=== PATIENT | male | born 1950 | race Caucasian/White ===

== ENCOUNTER 2018-06-24 21:58 | Emergency (ER) | payer MEDICARE, OTHER ==
[~2018-06-24] VITALS: Ht 167.6 cm; Wt 58.5 kg
[2018-06-24 22:22] VITALS: BP 140/81
--- NOTE | 2018-06-24 22:25 | NUR ---
TO LOBBY A/W BED , HUBER MCKEON, ADRIANE NOTED
--- NOTE | 2018-06-24 23:22 | NUR ---
PT TAKEN TO BED 7
--- NOTE | 2018-06-24 23:25 | NUR ---
PT PRESENTED ER WITH C/O CONSTIPATION X 3 WEEKS. PT STATED HE HAS BEEN USING STOOL SOFTNERS BUT HAD NO RELIEF. HE HAD A SMALL BM TODAY.BOWL SOUNDS ACTIVE IN ALL 4 Q. PT STATES THE REASON HE IS CONSTIPATERD IS BECAUSE HE TAKES A LOT OF PAIN MEDICATION. PT STATES HE DOES DRINK FLUIDS. PT IS A/O X 4. MED HX IS SPINAL INJURY AND KNA. DENIES N/V/D; SKIN IS PINK/WARM/DRY; VSS; PATIENT POSITIONED FOR COMFORT; HOB ELEVATED; BEDRAILS UP X2; BED DOWN. ER MD MADE AWARE OF PT STATUS.
--- NOTE | 2018-06-24 23:26 | NUR ---
Dr. Joy evaluating patient at bedside.
--- NOTE | 2018-06-24 23:43 | NUR ---
PT TAKEN TO CT
--- NOTE | 2018-06-24 23:52 | NUR ---
PT RETURN FROM CT
[2018-06-25] MEDS ORDERED: LACTULOSE 20 GM/30 ML UDC PO ONE (00:20)
[2018-06-25] MEDS ORDERED: SODIUM PHOSPHATE 118 ML ENEM RC ONE (00:20)
--- NOTE | 2018-06-25 00:22 | NUR ---
PT MOVED TO BED 1
--- NOTE | 2018-06-25 01:31 | NUR ---
PT REPORTS THAT HE IS STILL UNABLE TO HAVE BM. PT STATED HE WILL TRY AGAIN
--- NOTE | 2018-06-25 02:00 | NUR ---
ER MD MADE AWARE OF PT UNABLE TO HAVE BM, SOAPS SUDS ENEMA ORDERED. ADMINISTERED SOAPS SUDS ENEMA WITH EDUCATION, PT VERBALIZED UNDERSTANDING.
--- NOTE | 2018-06-25 02:30 | NUR ---
PT ABLE TO HAVE LARGE AMOUNT BOWEL MOVEMENT ON BEDSIDE COMMODE, PT REPORTS MODERATE RELIEF IN CONSTIPATION.
[2018-06-25 03:02] VITALS: BP 135/85
--- NOTE | 2018-06-25 03:02 | NUR ---
Patient discharged with v/s stable. Written and verbal after care instructions given and explained. Patient alert, oriented and verbalized understanding of instructions. Ambulatory with steady gait. All questions addressed prior to discharge. ID band removed. Patient advised to follow up with PMD. Rx of LACTULOSE given. Patient educated on indication of medication including possible reaction and side effects. Opportunity to ask questions provided and answered.
== END 2018-06-25 03:02 | disposition home or self-care (01) ==
LOC: MED 21:58
DX: K59.00 Constipation, unspecified (principal)
CPT/HCPCS: 99284